=== PATIENT | female | born 2000 | race Caucasian/White ===

== ENCOUNTER 2024-03-31 14:08 | Emergency (ER) | payer SELFPAY ==
[2024-03-31 14:20] VITALS: BP 136/72; PULSE 134; RESP 18; TEMP 36.9; O2SAT 99
--- NOTE | 2024-03-31 14:30 | ED_ITS ---
HPI - Nausea/Vomiting/Diarrhea General Chief complaint: Nausea/Vomiting/Diarrhea Stated complaint: Abdominal Pain/Diarrhea/Vomiting/Chills Time Seen by Provider: 03/31/24 14:30 Source: patient, RN notes reviewed and old records reviewed Mode of arrival: ambulatory Limitations: no limitations History of Present Illness HPI Narrative: 24 year old female presents to [facility] care with complaints of nausea, vomiting and diarrhea since 7 am after eating at [employer] this morning at 0500. Patient reports that she has some tenderness in the upper epigastric area but denies any sharp pain or any blood noted in vomit or diarrhea. Patient voices no fever, headache or any body aches. Patient has not taken any OTC medications for her symptoms. Patient reports that she works nights at [employer] and went to [employer] after getting off work this morning. MD elicited complaint: nausea, vomiting and diarrhea Onset (ago): day(s) (today at 0700) Description of vomiting: food contents and watery Description of diarrhea: watery and lose (loose) Associated nausea: Yes Associated abdominal pain: Yes Location of pain: epigastric Pain scale (0-10): 4 Treatment prior to arrival: none Related Data Home Medications ?Medication ?Instructions ?Recorded ?Confirmed ?Last Taken ?Type melatonin 03/12/24 Unknown History Allergies Allergy/AdvReac Type Severity Reaction Status Date / Time pineapple Allergy Unknown Unknown Verified 03/31/24 14:28 Penicillins AdvReac Intermediate Nausea and Verified 03/31/24 14:28 Vomiting Review of Systems Review of Systems: CONSTITUTIONAL: Denies fever, chills, or sweats. EYES: Denies visual changes, redness, or discharge. ENT: Denies rhinorrhea, congestion, sore throat, or otalgia. CARDIOVASCULAR: Denies chest pain, palpitations, or edema. RESPIRATORY: Denies cough or dyspnea. GASTROINTESTINAL:States some epigastric abdominal pain, positive for nausea, vomiting, or diarrhea. GENITOURINARY: Denies dysuria or hematuria. SKIN: Denies rash or itching. MUSCULOSKELETAL: Denies back pain, joint pain, or myalgia. NEUROLOGIC: Denies headache, numbness, or weakness. PSYCHIATRIC: Denies anxiety or depression. All systems reviewed & are unremarkable except as noted in HPI and below PMFSH Past Medical History Medical History Asthma as child PCOS (polycystic ovarian syndrome) Surgical History Surgical History History of tonsillectomy Social History Social History Smoking status: Current every day smoker Tobacco type: e-cigarettes/vaping Alcohol intake: current Alcohol use details: rare social Substance use type: does not use Living arrangements: with family Gender identity (if verbalized by the patient): Female Comments At time of signature, agree with nursing past medical, surgical, social and family history. There is no relevant family history pertinent to the presenting complaint Exam Narrative: GENERAL: Well-appearing, well-nourished,obese, unkept with body odor. and in no acute distress Patient report she showers at [employer] when she can go work out does not have running water at home. HEAD: Normocephalic, atraumatic. EYES: PERRLA and EOMI. ENT: Nares clear, no rhinorrhea or epistaxis. Mucous membranes moist. NECK: Supple., no lymphadenopathy CHEST: Clear to auscultation. No respiratory distress.SAO2 99% on room air HEART: Regular rate and rhythm. No murmur heard. Normal peripheral pulses. ABDOMEN: Soft, nontender, no McBurney point tenderness, no right upper abdomen pain states some epigastric tenderness, nondistended, normal active bowel sounds. EXTREMITIES: Normal range of motion. No edema. SKIN: Warm, dry, no rash. NEURO: No focal deficits. Alert and oriented x3. Course Course Emergency Course: Patient is aware of diagnosis, understands and agrees to treatment plan.? Anticipatory guidance given.? Patient agrees to follow-up as directed and is aware of reasons to seek care at the emergency department. Portions of this record may have been created with voice recognition software Level of Care: Express Care Visit Vital Signs Vital signs: Vital Signs Temperature 36.9 C 03/31/24 14:20 Pulse Rate 134 H 03/31/24 14:20 Respiratory Rate 18 03/31/24 14:20 Blood Pressure 136/72 03/31/24 14:20 Pulse Oximetry 99 03/31/24 14:20 Oxygen Delivery Room Air 02/05/25 14:20 Temperature 36.9 C 03/31/24 14:20 Pulse Rate 134 H 03/31/24 14:20 Respiratory Rate 18 03/31/24 14:20 Blood Pressure 136/72 03/31/24 14:20 Pulse Oximetry 99 03/31/24 14:20 Oxygen Delivery Room Air 03/31/24 14:20 Reviewed MDM - Nausea/Vomiting/Diarrhea MDM Narrative Medical decision making narrative: Information on social service agencies in area for possible assistance with lack of running water in home. 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 Lives with father who is on SSI and she works at [employer] not a lot of money to go around she states.. Differential Diagnosis Differential diagnosis: Likely traveler's diarrhea, food poisoning, gastroenteritis and other (nausea vomiting and diarrhea) Medical Records Attestation: I reviewed the patient's medical records. Critical Care Time Critical Care Time Critical Care Time: No Discharge Plan Discharge Clinical Impression: Gastroenteritis Patient Disposition: Home, Self-Care Condition: Stable Instructions: Gastroenteritis (ED), Acute Nausea and Vomiting (ED) Additional Instructions: Clear liquids for the next 8-10 hours, then advance to a bland diet as tolerated A bland diet can consist of--BRAT diet which is bananas, rice, applesauce, and toast Avoid fried, greasy, fatty, fried foods Avoid caffeine, nicotine, and alcohol Return to your regular diet in the next 3-4 days Medication as directed for nausea and vomiting [id number] Imodium if develop diarrhea Follow-up with her PCP if continued problems or uncontrolled pain If your symptoms persist, change or worsen significantly before you can contact your personal physician then please, without delay, go to the emergency department for further evaluation. Follow-up with PCP in 7-10 days or sooner if needed Follow up with PCP soon in regards to your blood pressure which is elevated above threshold for referral. Blood pressure above 120/80 may indicate pre- hypertension. 136/72 Negative flu and negative COVID Patient Language: Hungarian Prescriptions: New ondansetron 4 mg tablet,disintegrating 4 mg PO Q6H PRN (Reason: nausea and vomiting) Qty: 10 0RF No Action melatonin Follow-up/Referrals: Xavier,Christin Zavala APN [Primary Care Provider] - Stand Alone Forms: Work/School Release IP Time of Disposition: 16:46 Quality [place] Coma Scale Eyes: Open Verbal: Oriented and Alert Motor: Follows Commands [place] Coma Total Score: 15
[2024-03-31] MEDS: ONDANSETRON HCL ODT 4 MG TABLET PO (14:35)
--- OUTSIDE RECORDS SUMMARY | 2024-03-31 15:03 | XMS_ITS | Referral Summary ---
Author Organization [facility] Address [address] [place] [address] Care Team Providers Care Director Specialty Name Role Phone Selin Shabazz MD Primary Care Provider [phone] Source Comments [facility],non-owned Affiliates and Associated Physician Practices is amultiple site organization consisting of ambulatory clinics and hospital sitesin [place], [place], [place] and [place]. This disclosure is being madepursuant to the Care Everywhere program and may not contain all information available regarding this patient. Last updated 17.[facility] [employer] Allergies No known active allergies Medications * Be aware that medications may not be up to date on this document. Alwaysverify current medications with the patient. Medication Sig Dispensed Refills Start Date End Date Status erythromycin (ROMYCIN) 5 MG/GM ophthalmic ointment Instill into left eye 4 times daily 3.5 g 10/22/2017 Active prednisoLONE (INFLAMASE FORTE) 1 % ophthalmic solution Instill 1 drop into left eye 4 times daily 10 mL 10/22/2017 Active carboxymethylcellulos e sodium (REFRESH;CELLUVISC) 1 % ophthalmic solution Instill 1 drop into left eye 3 times daily 1 bottles 10/22/2017 Active trimethoprim-polymyxi n B (POLYTRIM) 91110-1.1 UNIT/ML-% ophthalmic solution Instill 1 drop into left eye 4 times daily 1 bottles 10/24/2017 Active Active Problems Problem Noted Date Diagnosed Date Abrasion of left cornea 11/01/2017 Social History Tobacco Use Types Packs/Day Years Used Date Smoking Tobacco: Never Assessed Smokeless Tobacco: Never Sex and Gender Information Value Date Recorded Sex Assigned at Not on file Gender Identity Not on file Sexual Orientation Not on file Last Filed Vital Signs Vital Sign Reading Time Taken Comments Blood Pressure 106/68 10/22/2017 5:39 PM CDT Pulse 72 10/22/2017 5:39 PM CDT Temperature 36.7 C (98 F) 10/22/2017 5:39 PM CDT Respiratory Rate 16 10/22/2017 5:39 PM CDT Oxygen Saturation - - Inhaled Oxygen Concentration - - Weight 75.3 kg (165 lb 14.4 oz) 07/25/2014 1:00 PM CDT Height 157 cm (5' 1.81 ) 07/25/2014 1:00 PM CDT Body Mass Index 30.53 07/25/2014 1:00 PM CDT Plan of Treatment Not on file Care Teams Director Specialty Relationship Specialty Start Date End Date Selin Shabazz MD [address] [place] [address] PCP - General Pediatrics 06/20/14
--- OUTSIDE RECORDS SUMMARY | 2024-03-31 15:03 | XMS_ITS | Referral Summary ---
Author Organization [facility] Address [address] [place] [address] Care Team Providers Care Precision Aircraft Systems Assembler Name Role Phone NewmanToneyie BRIANNA Primary Care Provider [phone] Allergies Active Allergy Reactions Criticality Noted Date Comments Penicillins Diarrhea Low 11/17/2021 Medications melatonin tablet Take by mouth Active norethindrone-e .estradioL-iron (LOESTIN 24 FE) 1 mg-20 mcg (24)/75 mg (4) per tabletIndicatio ns:Dysmenorrhea Take 1 tablet by mouth daily 84 tablet 1 Active Additional Information Patient not taking.Reported on 11/17/2021 cholecalciferol , vitamin D3, (VITAMIN D3 ORAL) Take by mouth Active Active Problems Problem Noted Date Diagnosed Date Healthcare maintenance 05/29/2020 Assessment & Plan (07/03/2020 2:47 PM CDT): -Recommended: Healthy diet. Avoiding junk food/fast food. -30 minutes of exercise most days of the week. Increase to 45 minutes for weight loss. Immunizations: Up to date lose weight, increase physical activity, call if any problems Follow-up in 1 year. Assessment & Plan (05/29/2020 6:09 PM CDT): -Recommended: Healthy diet. Avoiding junk food/fast food. -30 minutes of exercise most days of the week. Increase to 45 minutes for weight loss. Immunizations: Recommended may need meningitis vaccine; lose weight, increase physical activity, follow low fat diet, routine labs ordered Follow-up in 1 month. Amenorrhea 05/29/2020 Assessment & Plan (07/03/2020 2:54 PM CDT): Insulin level is >72. Likely pcos. No sign of DM with a hga1c of 4.8%. She already has pending appointment with gynecology on 07/17 and I encouraged her to discuss pcos symptoms with them. Assessment & Plan (05/29/2020 6:10 PM CDT): Likely pcos. Will check labs. Pt also has new patient appointment scheduled in June with gynecology. Anxiety 05/29/2020 Assessment & Plan (07/03/2020 2:53 PM CDT): Pt has long hx of anxiety and hx of social discord. Currently living with father and step-mom. 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 Will refer to psychiatry for management. Assessment & Plan (05/29/2020 6:17 PM CDT): Has long hx of. She and her step Mom state that they want her to see same psychiatrist her father sees and will be making her an appointment. Attention deficit disorder 05/20/2012 Overview (12/30/2016): 05/2014 NONCOMPLIANCE UDS no meds Assessment & Plan (07/03/2020 2:52 PM CDT): History of. Refer to psychiatry Resolved Problems Problem Noted Date Diagnosed Date Resolved Date Overweight 01/10/2014 05/29/2020 Overview (06/01/2016): Overweight Deficient knowledge of safety precautions 10/14/2011 05/29/2020 Overview (05/31/2016): Safety awareness deficit Medical examinations/reports status 2002 05/29/2020 Overview (05/31/2016): Health care maintenance Immunizations Name Administration Dates Next Due DTaP 12/26/2006, 4,2002,08/09,2002 DTaP, Unspecified 12/26/2006, 4,2002,08/09 HPV, Quadrivalent 10/09/2015,07/06/2014,12/08/19 14 Hep A, Ped Unspecified 12/03/2007,12/26/2006 Hep A, Pediatric 12/03/2007,12/26/2006 Hep B, Adolescent or Pediatric 2002,2002,2002 Hep B, Unspecified 2002 HiB 07/01/2003, 3,2002,06/08 Hib (HbOC) 07/01/2003, 3,2002,06/08 IPV 12/26/2006, 4,2002,06/08 Influenza, Live, Intranasal, Quadrivalent 12/07/2013 Influenza, Split 12/03/2007 Influenza, Trivalent, Preser vative Free, Intramuscular 12/11/2010 Influenza, Unspecified 01/08/2020,03/30/2004, MMR 12/26/2006,03/31/2003 Meningococcal Conjugate (Menveo) 12/07/2013 Meningococcal Polysaccharide (Menomune) 12/07/2013 Pneumococcal Conjugate 7-Valent 01/10/20 04,2002,2002,06/08 Pneumococcal, Unspecified 01/10/2004,2002, 2002 Polio, Unspecified 12/26/2006,03/31/2003, 003 Tdap 12/07/2013 Varicella 12/26/2006,07/01/2003 Social History Tobacco Use Types Packs/Day Years Used Date Smoking Tobacco: Every Day Cigarettes Smokeless Tobacco: Never Tobacco Cessation:Ready to Q uit: Not Asked; Counseling Given: Not Answered PHQ-2 Answer Date Recorded PHQ-2 Total Score (If total score is 3 or more points, staff should administer the PHQ-9) 0 07/03/2020 Comments No Sex and Gender Information Value Date Recorded Sex Assigned at Not on file Legal Sex Female 1:43 AM DECK MECHANIC Gender Identity Not on file Sexual Orientation Not on file Last Filed Vital Signs Vital Sign Reading Time Taken Comments Blood Pressure 94/50 04/20/2022 11:19 AM DECK MECHANIC Pulse 124 04/20/2022 11:19 AM DECK MECHANIC Temperature 37.3 C (99.1 F) 04/20/2022 11:19 AM DECK MECHANIC Respiratory Rate 20 04/20/2022 11:1 9 AM DECK MECHANIC Oxygen Saturation 98% 04/20/2022 11: 19 AM DECK MECHANIC Inhaled Oxygen Concentration - - Weight 116.8 kg (257 lb 6.4 oz) 023 11:19 AM DECK MECHANIC Height 162 cm (5' 3.78 ) 04/20/2022 11: 19 AM DECK MECHANIC Body Mass Index 44.49 04/20/2022 11:19 AM DECK MECHANIC Plan of Treatment Not on file Procedures Procedure Name Priority Date/Time Associated Diagnosis Comments N. GONORRHOEAE/C. TRACHOMATIS AMPLIFICATION Routine 07/17/2020 3:31 PM CDT Routine screening for STI (sexually transmitted infection) from Last 3 Months or Most Recently Relevant to Health Maintenance Results * N. gonorrhoeae/C. trachomatis Amplification Urine (07/17/2020 3:31 PM CDT) C. trachomatis RNA NOT DETECTED NOT DETECTED [facility] N. gonorrhoeae RNA NOT DETECTED NOT DETECTED [facility] Comment [facility] Comment: The analytical performance characteristics of this assay, when used to test SurePath(TM) specimens have been determined by [employer]. The modifications have not been cleared or approved by the FDA. This assay has been validated pursuant to the CLIA regulations and is used for clinical purposes. For additional information, please refer to https://education.[employer].Activehours/faq/RQY955 (This link is being provided for information/ educational purposes only.) Urine (None) 07/17/2020 3:31 PM CDT 07/18/2020 2:32 AM CDT Patricia M. Kenney [facility] MICROBIOLOGY - GENERAL ORDER FRANCIS Final Result [facility] [id number] [phone] from Last 3 Months or Most Recently Relevant to Health Maintenance Insurance [facility] IDPA [facility]PA IDPA Care Teams [employer] Aircraft Systems Assembler Relationship Specialty Start Date End Date Kitty Newman NP PCP - General Family Medicine 05/29/20
--- OUTSIDE RECORDS SUMMARY | 2024-03-31 15:03 | XMS_ITS | Clinical Summary ---
Author Organization [facility] Address [address] [place] [address] Care Team Providers Care Floral Arranger Name Role Phone Selin Shabazz MD Primary Care Provider Source Comments [facility],non-owned Affiliates and Associated Physician Practices is amultiple site organization consisting of ambulatory clinics and hospital sitesin [place], [place], [place] and [place]. This disclosure is being madepursuant to the Care Everywhere program and may not contain all information available regarding this patient. Last updated 17.[facility] [employer] Allergies No known active allergies Medications * [...] bottles 10/22/2017 Active trimethoprim-polymyxi n B (POLYTRIM) 33112-5.1 UNIT/ML-% ophthalmic solution Instill 1 drop into left eye 4 times daily 1 bottles 10/24/2017 Active Active Problems Problem Noted Date Diagnosed Date Abrasion of left cornea 11/01/2017 Family History Medical History Relation Name Comments Glaucoma Neg Hx Social History Tobacco Use Types Packs/Day Years [...] 07/25/2014 1:00 PM CDT Plan of Treatment Health Maintenance Due Date Last Done Comments PAP SMEAR 2002 HIV SCREENING 2017 HPV VACCINE (1 - 3-dose series) 2017 CHLAMYDIA/GONORRHEA SCREENING 2018 MENINGOCOCCAL (Group B) VACC INE (1 of 2 - Standard) 2018 HEPATITIS C SCREENING 03/24/2020 DTAP/TDAP/TD VACCINES (1 - Tdap) 2021 HEPATITIS B VACCINE (1 of 3 - 19+ 3-dose series) 2021 COVID-19 VACCINE (1 - 2023-2 5 season) 2023 INFLUENZA VACCINE (#1) 2023 DEPRESSION SCREENING 02/25/2024 ZOSTER VACCINE (1 of 2) 2052 HIB VACCINE Aged Out No longer eligi ble based on patient's age to complete this topic MENINGOCOCCAL VACCINE Aged Out No pham natalya eligible based on patient's age to complete this topic PNEUMOCOCCAL VACCINE Aged Out No long er eligible based on patient's age to complete this topic Care Teams Floral Arranger Relationship Specialty Start Date End Date Selin Shabazz MD [address] [place] [phone] PCP - General Pediatrics 06/20/14
--- OUTSIDE RECORDS SUMMARY | 2024-03-31 15:03 | XMS_ITS | Clinical Summary ---
Author Organization [facility] Address [address] [place] [address] Phone Care Team Providers Care Stencil Machine Operator Name Role Phone Provider, None Primary Care Provider Unavailabl e Allergies Active Allergy Reactions Criticality Noted Date Comments Penicillins Diarrhea,Vomiting 12/12/2021 Medications No known medications Social History Tobacco Use Types Packs/Day Years Used Date Smoking Tobacco: Former Alcohol Use Standard Drinks/Week Comments Not Currently 0 (1 standard drink = 0.6 oz pur e alcohol) Comments No Sex and Gender Information Value Date Recorded Sex Assigned at Not on file Legal Sex Female 10:57 PM CDT Gender Identity Not on file Sexual Orientation Not on file Last Filed Vital Signs Vital Sign Reading Time Taken Comments Blood Pressure 111/60 05/27/2022 2:23 AM CDT Pulse 78 05/27/2022 2:23 AM CDT Temperature 36.9 C (98.4 F) 05/27/2022 12:40 AM CDT Respiratory Rate 16 05/27/2022 2:23 AM CDT Oxygen Saturation 96% 05/27/2022 12:40 AM CDT Inhaled Oxygen Concentration - - Weight 116.6 kg (257 lb) 05/27/2022 12:40 AM CDT Height 160 cm (5' 3 ) 05/27/2022 12:40 AM CDT Body Mass Index 45.53 05/27/2022 12:40 AM CDT Plan of Treatment Health Maintenance Due Date Last Done Comments Hepatitis C Virus (HCV) Screening 2002 Meningococcal B Immunization (1 of 2 - Standard) 2018 Pap Smear 2023 Influenza Immunization (#1) 10/26/202312/25, 12/07/2013, 12/11/2010, Additional history exists SARS-COV-2 Immunization ( season) 2023 05/22/2021, 04/22/2021 Respiratory Syncytial Virus (RSV) Immunization (Adult) (1 - 1-dose 75+ series) 2077 Hepatitis B Immunization Completed 003, 2002, 2002, Additional history exists Pneumococcal Immunization Combined Aged Out 01/10/2004, 01/10/2004, 2002, Additional history exists No longer eligible based on patient's age to complete this topic DTaP/Tdap/Td Immunization Discontinued 2013, 12/26/2006, 12/26/2006, Additional history exists Meningococcal Immunization (ACWY) Aged Out 12/07/2013, 12/07/2013 No longer eligibl e based on patient's age to complete this topic TdaP Immunization Completed 12/07/2013 Human Papillomavirus (HPV) Immunization Completed 10/09/2015, 07/06/2014, 12/07/2013 Rotavirus Immunization Aged Out No lo nger eligible based on patient's age to complete this topic Insurance MEDICAID [place] Care Teams Stencil Machine Operator Relationship Specialty Start Date End Date Provider, None [place] PCP - General 12/12/21
--- OUTSIDE RECORDS SUMMARY | 2024-03-31 15:03 | XMS_ITS | Encounter Summary ---
Author Organization [facility] Address [address] [place] [address] Care Team Providers Care Application Dba Name Role Phone Selin Shabazz MD Primary Care Provider Encounter Details Date Type Department Care Team (Late st Contact Info) Description 10/22/2017 Ophth Exam [facility] Pediatrics - Ophthalmology [address] [place] [address] Marcella Lugo MD [address] [place] [id number] Social History Tobacco Use Types Packs/Day Years Used Date Smoking Tobacco: Never Assessed Sex and Gender Information Value Date Recorded Sex Assigned at Not on file Gender Identity Not on file Sexual Orientation Not on file documented as of this encounter Plan of Treatment Not on file documented as of this encounter Visit Diagnoses Not on filedocumented in this encounter Care Teams Application Dba Relationship Specialty Start Date End Date Selin Shabazz MD [address] [phone] PCP - General Pediatrics 06/20/14 documented as of this encounter
--- OUTSIDE RECORDS SUMMARY | 2024-03-31 15:03 | XMS_ITS | Patient Health Summary ---
Author Organization [facility] Address [address] [place] [address] Care Team Providers Care Planer Setter Name Role Phone Selin Shabazz MD Primary Care Provider [phone] Note from [facility],non-owned Affiliates and Associated Physician Practices is amultiple site organization consisting of ambulatory clinics and hospital sitesin [place], [place], [place] and [place]. This disclosure is being madepursuant to the Care Everywhere program and may not contain all information available regarding this patient. Last updated 17.[facility] Allergies No known active allergies Medications * Be aware that medications may not be up to date on this document. Alwaysverify current medications with the patient. * erythromycin (ROMYCIN) 5 MG/GM ophthalmic ointment(Started 10/22/2017) Instill into left eye 4 times daily * prednisoLONE (INFLAMASE FORTE) 1 % ophthalmic solution(Started 10/22/2017) Instill 1 drop into left eye 4 times daily * carboxymethylcellulose sodium (REFRESH;CELLUVISC) 1 % ophthalmic solution (Started 10/22/2017) Instill 1 drop into left eye 3 times daily * trimethoprim-polymyxin B (POLYTRIM) 25043-5.1 UNIT/ML-% ophthalmic solution (Started 10/24/2017) Instill 1 drop into left eye 4 times daily Active Problems Problem Noted Date Diagnosed Date [...] Weight 75.3 kg (165 lb 14.4 oz) 015 1:00 PM CDT Height 157 cm (5' 1.81 ) 07/25/2014 1:00 PM CDT Body Mass Index 30.53 07/25/2014 1:00 PM CDT Procedures * GROSS EXAM PATHOLOGY(Performed 02/14/2009) Results * GROSS EXAM PATHOLOGY (02/14/2009 11:18 AM ULTRASOUND SPEC) Result CASE NUMBER [id number] [facility] PATH REPORT Comment: ORDERING PHYSICIAN TONO THAPA SPECIMEN TYPE Tonsils CLINICAL HISTORY The patient is a 8-year-old girl with adenotonsillar hypertrophy. GROSS DESCRIPTION Submitted fresh in one container for gross examination only labeled with the patient's name, Ade Rodriguez, and tonsils are two egg-shaped, pink-jorgensen palatine tonsils measuring 2.0 x 1.8 x 1.2 cm and 2.0 x 1.8 x 1.4 cm weighing approximately 7.0 g combined. On cut surface, the tonsils have a cerebriform yellow-jorgensen appearance. No sections are taken. (CT/lw) GROSS DIAGNOSIS GROSS DIAGNOSIS PALATINE TONSILS. This case has been personally reviewed and interpreted by the attending (teaching) pathologist. Nurse Esthetician [place] PATHOLOGIST Amanda Tillman M.D. ELECTRONICALLY SHANIA AMANDA TILLMAN MISCELLANEOUS SAMPLES / Unknown 02/14/2009 11:18 AM ULTRASOUND SPEC 02/14/2009 12:19 PM ULTRASOUND SPEC Historical Provider LAB - PATHOLOGY/C YTOLOGY ORDERABLES [facility] PATH REPORT Care Teams Planer Setter Relationship Specialty Start Date End Date Selin Shabazz MD [address] [place] [id number] PCP - General Pediatrics 06/20/14
--- OUTSIDE RECORDS SUMMARY | 2024-03-31 15:03 | XMS_ITS | Clinical Summary ---
Author Organization [facility] Address [address] [place] [address] Care Team Providers Care Tool Maker Name Role Phone NewmanToneyie BRIANNA Primary Care Provider [phone] Allergies Active Allergy Reactions Criticality Noted Date [...] living with father and step-mom. Works at [employer]ded [employer]. Will refer to psychiatry for management. Assessment [...] Unspecified 12/26/2006,03/31/2003, 003 Tdap 12/07/2013 Varicella 12/26/2006,07/01/2003 Surgical History Surgery Date Site/Laterality Comments TONSILLECTOMY/ADENOIDECTOMY 02/24/2007 - 02/24/2008 Medical History Medical History Date Comments Depression 2014 Family History Medical History Relation Name Comments Other Brother Dl ITP; Bipolar disorder Father Mitral valve prolapse Father hypoglycemia Father Schizophrenia Maternal Grandfather Diabetes Maternal Grandmother Heart disease Maternal Grandmother Lung cancer Maternal Great-Grandmother Anemia Mother Asthma Mother Asthma Other 1 Family history of Asthma; Coronary artery disease Other 2 Fami ly history of Coronary artery disease; Other Other 3 Family history of Deafness; Other Other 4 Family history of Gauchier disease; Hypertension Other 5 Family history of Hypertension; Migraines Other 6 Family history of Migraines; Thyroid disease Other 7 Family histo ry of Thyroid disease; Other Other 8 Family history of congenital heart disease/; Other Other 9 No family histo ry of Hyperlipidemia; Diabetes Paternal Grandmother Hypertension Paternal Grandmother Asthma Sister Relation Name Status Comments Brother Dl Father Alive Maternal Grandfather Maternal Grandmother Maternal Great-Grandmother Mother Alive Other 1 Other 2 Other 3 Other 4 Other 5 Other 6 Other 7 Other 8 Other 9 Paternal Grandmother Sister Social History Tobacco Use Types Packs/Day Years [...] on file Legal Sex Female 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 Gender Identity Not on file Sexual Orientation Not on file Obstetrics History Para Term AB IAB SAB Ectopic Multiple Livin g Live Births 0 0 0 0 0 0 0 0 0 0 0 Last Filed Vital Signs Vital Sign Reading Time Taken Comments Blood Pressure 94/50 04/20/2022 11:19 AM 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 Pulse 124 04/20/2022 11:19 AM 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 Temperature 37.3 C (99.1 F) 04/20/2022 11:19 AM 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 Respiratory Rate 20 04/20/2022 11:1 9 AM 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 Oxygen Saturation 98% 04/20/2022 11: 19 AM 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 Inhaled Oxygen Concentration - - Weight 116.8 kg (257 lb 6.4 oz) 023 11:19 AM 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 Height 162 cm (5' 3.78 ) 04/20/2022 11: 19 AM 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 Body Mass Index 44.49 04/20/2022 11:19 AM 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 Plan of Treatment Health Maintenance Due Date Last Done Comments Cervical Cancer Screening 2002 Hepatitis C Screening 2002 Pneumococcal vaccine <65 (1 of 1 - PPSV23 or PCV20) 2008 01/10/2004, 01/10/2004, 2002, Additional history exists Meningococcal B Vaccine (1 of 2 - Patient Seeks Protection) 2018 Depression Screening 07/03/2021 07/03/2020, 05/29/2020, 05/29/2020 Regular Well Visit/Exam 18-64 07/03/2021 07/03/2020 Chlamydia and Gonorrhea (GC/CT) Screening 07/17/2021 07/17/2020 Covid-19 Vaccine ( season) 2023 05/22/2021, 04/22/2021 Influenza Vaccine (#1) 2023 , 12/07/2013, 12/11/2010, Additional history exists DTaP/Tdap/Td Vaccine (7 - Td or Tdap) 12/08/2023 12/07/2013, 12/26/2006, 12/26/2006, Additional history exists Varicella Vaccines Completed 12/26/2006, 07/01/2003 Meningococcal Vaccine Aged Out 12/07/2013, 014 No longer eligible based on patient's age to complete this topic HPV Vaccines Completed 10/09/2015, 06/24, 12/07/2013 Procedures Procedure Name Priority Date/Time Associated Diagnosis Comments N. GONORRHOEAE/C. TRACHOMATIS AMPLIFICATION Routine 07/17/2020 3:31 PM CDT Routine screening for STI (sexually transmitted infection) from Last 3 Months or Most Recently Relevant to Health Maintenance Results * N. gonorrhoeae/C. trachomatis Amplification Urine (07/17/2020 3:31 PM CDT) C. trachomatis RNA NOT DETECTED NOT DETECTED [facility] N. gonorrhoeae RNA NOT DETECTED NOT DETECTED [facility] Comment [facility] Comment: The analytical performance characteristics of this assay, when used to test SurePath(TM) specimens have been determined by [email or web address]. The modifications have not been cleared or approved by the FDA. This assay has been validated pursuant to the CLIA regulations and is used for clinical purposes. For additional information, please refer to https://education.Photos to Photos.[employer]/faq/MIS257 (This link is being provided for information/ educational purposes only.) Urine (None) 07/17/2020 3:31 PM CDT 07/18/2020 2:32 AM CDT Patricia Kenney NP LAB MICROBIOLOGY - GENERAL ORDER FRANCIS Final Result Performing Organization Address City/State[place]IP [place] Phone Number [facility] [address] [facility] [place] [phone] from Last 3 Months or Most Recently Relevant to Health Maintenance [place] [address] [place] [address] [address] [address] [address] [place] [place] [address] [facility] IDPA IDPA Care Teams Tool Maker Relationship Specialty Start Date End Date Kitty Newman NP PCP - General Family Medicine 05/29/20
== END 2024-03-31 16:42 | disposition home or self-care (01) ==
PROVIDERS: Emergency Provider Registered Nurse; PCP Nurse Practitioner Family
DX: K52.9 Noninfective gastroenteritis and colitis, unspecified (principal); F17.290 Nicotine dependence, other tobacco product, uncomplicated; E28.2 Polycystic ovarian syndrome
CPT/HCPCS: 99213; A9270; G0463